=== PATIENT | female | born 1965 | race African-American/Black ===

== ENCOUNTER 2018-07-19 06:03 | Emergency (ER) | payer OTHER | END 2018-07-19 12:16 | LOC: JER 06:03 ==

== ENCOUNTER 2022-01-15 18:46 | Emergency (ER) | payer OTHER ==
[2022-01-15 20:17] VITALS: BP 132/66; PULSE 95; RESP 22; TEMP 97.8; BMI 29.0
[2022-01-15] MEDS ORDERED: ALBUTEROL SO4 2.5/IPRATROPIUM 0.5 INH SOL 3 ML VIAL.NEB. NEB PRN (23:17)
[2022-01-15] MEDS ORDERED: DEXAMETHASONE SOD PHOSPHATE 10 MG/1 ML VIAL IM ONE (23:17)
[2022-01-15] MEDS ORDERED: ALBUTEROL SO4 2.5/IPRATROPIUM 0.5 INH SOL 3 ML VIAL.NEB. NEB ONE (23:21)
[2022-01-15] MEDS ORDERED: DEXAMETHASONE SOD PHOSPHATE 10 MG/1 ML VIAL ONE (23:21)
[2022-01-15 23:43] LABS: BASO % 0.7 % (0-2.0); EOS % 0.5 % (0-4.5); HEMATOCRIT 37.6 % (32.4-45.2); HEMOGLOBIN 12.6 GM/dL (10.7-15.3); LYMPH % 8.2 % (8-40); MCH 29.1 pg (25.7-33.7); MCHC 33.5 g/dl (32.0-36.0); MEAN CELL VOLUME 87.1 fl (80-96); MEAN PLT VOLUME 8.8 fl (7.5-11.1); NEUT % 83.6 % (42.8-82.8); PLATELET COUNT 287 10^3/uL (134-434); RBC 4.31 M/mm3 (3.60-5.2); RDW 13.1 % (11.6-15.6); WHITE BLOOD COUNT 5.8 K/mm3 (4.0-10.0)
[2022-01-16 00:11] LABS: CALCIUM 9.1 mg/dL (8.5-10.1)
[2022-01-16 00:12] LABS: ALBUMIN 3.9 g/dl (3.4-5.0); BLOOD UREA NITROGEN 12.9 mg/dL (7-18)
[2022-01-16 00:15] LABS: CREATININE 0.9 mg/dL (0.55-1.3)
[2022-01-16 00:17] LABS: BILIRUBIN,TOTAL 0.5 mg/dL (0.2-1); TOT PROT 7.5 g/dl (6.4-8.2)
== END 2022-01-16 03:18 | disposition home or self-care (01) ==
LOC: JER 18:46
PROC: 3E0F7GC Introduction of Other Therapeutic Substance into Respiratory Tract, Via Natural or Artificial Opening (ICD-10-PCS; principal; 2022-01-15)
PROC: 3E0233Z Introduction of Anti-inflammatory into Muscle, Percutaneous Approach (ICD-10-PCS; 2022-01-15)
DX: R05.1 Acute cough (principal); R06.02 Shortness of breath
CPT/HCPCS: 0241U-QW; 36415; 80053; 84484; 85025; 93005; 93010; 99284-25; J1100

== ENCOUNTER 2023-11-09 09:33 | Emergency (ER) | payer OTHER ==
[2023-11-09 09:46] VITALS: RESP 18; BMI 30.2
[2023-11-09] MEDS ORDERED: ACETAMINOPHEN INJECTION 100 ML ONE (10:51)
[2023-11-09] MEDS: SODIUM CHLORIDE 0.9% 1000 ML INFUS.BAG IV ONE (11:11)
[2023-11-09] MEDS: ONDANSETRON 4 MG/2 ML VIAL IVPB ONE (11:13)
[2023-11-09] MEDS: ACETAMINOPHEN 1000 MG/100 ML BAG IVPB ONE (11:13)
[2023-11-09 11:22] LABS: HEMOGLOBIN 13.2 GM/dL (10.7-15.3); MCH 28.7 pg (25.7-33.7); MEAN PLT VOLUME 9.5 fl (7.5-11.1); PLATELET COUNT 315 10^3/uL (134-434); RBC 4.59 M/mm3 (3.60-5.2); RDW 13.3 % (11.6-15.6); WHITE BLOOD COUNT 6.1 K/mm3 (4.0-10.0)
[2023-11-09 11:41] LABS: POTASSIUM 4.3 mmol/L (3.5-5.1)
[2023-11-09 11:48] LABS: CALCIUM 9.6 mg/dL (8.5-10.1)
[2023-11-09 11:49] LABS: ALBUMIN 4.1 g/dl (3.4-5.0); BLOOD UREA NITROGEN 10.3 mg/dL (7-18); MAGNESIUM 2.3 mg/dL (1.8-2.4)
[2023-11-09 11:52] LABS: BILIRUBIN,TOTAL 0.7 mg/dL (0.2-1); TOT PROT 8.3 g/dl (6.4-8.2)
[2023-11-09 11:53] LABS: CREATININE 0.9 mg/dL (0.55-1.3)
[2023-11-09 13:23] VITALS: BP 132/74; PULSE 75; TEMP 98
[2023-11-09 16:10] LABS: HIV INTERPRETATION NEGATIVE (NEGATIVE)
== END 2023-11-09 13:23 | disposition home or self-care (01) ==
LOC: JER 09:33
PROC: 3E033NZ Introduction of Analgesics, Hypnotics, Sedatives into Peripheral Vein, Percutaneous Approach (ICD-10-PCS; principal; 2023-11-09)
PROC: 3E033GC Introduction of Other Therapeutic Substance into Peripheral Vein, Percutaneous Approach (ICD-10-PCS; 2023-11-09)
DX: U07.1 COVID-19 (principal); R11.2 Nausea with vomiting, unspecified; R10.11 Right upper quadrant pain
CPT/HCPCS: 0241U-QW; 36415; 76705-TC; 80053; 83690; 83735; 85027; 86803; 87389; 93005; 93010; 99285-25; J0131